=== PATIENT | female | born 1975 | race Caucasian/White ===

== ENCOUNTER → 2017-07-25 | Outpatient (CLI) | DX: Z34.83 Encounter for supervision of other normal pregnancy, third trimester (principal) | CPT/HCPCS: 36415; 80307; 82951; 85014; 85018; 86703; 87340; G0481 ==

== ENCOUNTER → 2017-07-30 | Outpatient (CLI) | payer OTHER ==
[~2017-07-30] MED LIST: CELE10TA PO; MULT-120 PO
== END ==
LOC: CLAB 10:19
PROVIDERS: ATTEND Obstetrics & Gynecology
DX: Z34.83 Encounter for supervision of other normal pregnancy, third trimester (principal)
CPT/HCPCS: 36415; 82951; 82952

== ENCOUNTER 2017-09-28 07:45 | Inpatient (IN) ==
[2017-09-28] MEDS ORDERED: fentaNYL 2MCG-Bupiv 0.125% Epi 150 ML EPIDURAL ONE (08:26)
[2017-09-28] MEDS ORDERED: Oxytocin 30 Units/500ml Premix 30 UNITS/500 ML BAG IV.SIG PRN (08:29)
[2017-09-28] MEDS ORDERED: Oxytocin 30 Units/500ml Premix 30 UNITS/500 ML BAG IV.SIG ONE (08:32)
[2017-09-28] MEDS ORDERED: Naloxone Inj 0.4 MG/ML Vial IV.PUSH PRN ×2 (08:32→10:51)
[2017-09-28] MEDS ORDERED: fentaNYL Citrate Inj 100 MCG/2 ML Ampul IV.PUSH PRN ×2 (08:32)
[2017-09-28] MEDS ORDERED: Sodium Chlor 0.9% Inj 500 ML IV.SIG PRN (08:32)
[2017-09-28] MEDS ORDERED: Sod Chloride 0.9% Inj 1,000 ML IV.CONT PRN (08:32)
[2017-09-28 08:39] LABS: Baso # (Auto) 0.1 th/mm3 (0.0-0.2); Baso % (Auto) 0.8 % (0.0-2.0); Eos # (Auto) 0.1 th/mm3 (0.0-0.4); Eos % (Auto) 1.1 % (0.0-4.0); Lymph # (Auto) 2.6 th/mm3 (1.0-4.8); Lymph % (Auto) 19.2 % (9.0-44.0); Mean Corpuscular HGB Conc 34.3 % (32.0-36.0); Mean Corpuscular Hemoglobin 29.5 pg (27.0-34.0); Mean Corpuscular Volume 86.1 fL (80.0-100.0); Mean Platelet Volume 8.5 fL (7.0-11.0); Mono # (Auto) 0.7 th/mm3 (0.0-0.9); Mono % (Auto) 5.5 % (0.0-8.0); Neut # (Auto) 9.9 th/mm3 (1.8-7.7); Neut % (Auto) 73.4 % (16.0-70.0); Platelet Count 237 th/mm3 (150-450); Red Blood Count 4.41 mil/mm3 (4.00-5.30); Red Cell Distribution Width 13.3 % (11.6-17.2); White Blood Count 13.5 th/mm3 (4.0-11.0)
[2017-09-28] MEDS ORDERED: Citric Acid/Sodium Citrate Liq 30 ML UDC PO SCH (08:45)
[2017-09-28] MEDS ORDERED: Bupivacaine/Epinephrine PF Inj 0.25% 10 ML Vial ONE (09:11)
[2017-09-28] MEDS ORDERED: fentaNYL 2MCG-Bupiv 0.125% Epi 150 ML EPIDURAL PRN (09:27)
[2017-09-28] MEDS ORDERED: fentaNYL Citrate Inj 100 MCG/2 ML Ampul EPIDURAL ONE (09:27)
--- NOTE | 2017-09-28 10:50 | P.HPOB ---
History of Present Illness Primary Care Physician: No Primary Care Physician Chief Complaint: Active labor at 38 and 4/7 weeks History of Present Illness: 41 yo mf at 38 4/7 weeks returned to L & D for second time in two hours at 4/100 and in significant distress. and maternal eval reassuring and consensus finally that labor ongoing. PNC with HOGA. No risk factors other than maternal age. NIPT reassuring. surveillance in third trimester reassuring No HTN, diabetes or PTL GBS neg. serology negative. Previous section x 1 and x 1. Desires TOLAC Weeks Gestation:: 38 Para: 2 : 3 - Inpatient Certification I certify that the inpatient services were ordered in accordance with Medicare regulations governing the order. This includes certification that hospital inpatient services are reasonable and necessary and in the case of services not specified as inpatient-only under 42 CFR 419.22(n), that they are appropriately provided as inpatient services in accordance to with the 2-midnight benchmark under 43 CFR 412.3(e) Estimated Total Length of Stay (Days): 2 Plans for Post Hospital Care: Home [facility] - History History Provided By: Patient - Surgical History Surgical History: Surgical History (Last Updated 09/28/17 @ 01:37 by Pavan Heath MD) H/O dilation and curettage History of History of laparoscopy - Tobacco History Second Hand Smoke Exposure: No Tobacco Use In Past 30 Days: No Smoking Status: Never smoker - Alcohol History How Often Do You Have a Drink Containing Alcohol: Never - Substance Use History Substance History: No History of Abuse - Travel History History of Recent Travel: No Recent Travel in the [place] Within the Last 8 Weeks: No Recent Travel Out of the Country Within the Last 8 Weeks: No Medications and Allergies Active Medications: Active Medications Citric Acid/Sodium Citrate (Sodium Citrate/Citric Acid Liq) 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 [facility] Stop: 10/02/17 08:44 Ephedrine Sulfate (Ephedrine/Ns Syringe) 10 mg IV.PUSH UNSCH PRN PRN Reason: SEE LABEL COMMENTS Stop: 09/29/17 09:27 Fentanyl Citrate (Fentanyl Inj) 50 mcg IV.PUSH Q1H PRN PRN Reason: Pain Scale 3 - 5 Fentanyl Citrate (Fentanyl Inj) 100 mcg IV.PUSH Q1H PRN PRN Reason: PAIN SCALE 6 TO 10 Oxytocin (Pitocin 30 Units/Ns 500 Ml Premix) 30 units in 500 mls @ 1 mls/hr IV.SIG TITRATE PRN; Protocol PRN Reason: For induction of labor Lactated Ringer's (Lr 1000 Ml Inj) 1,000 mls @ 125 mls/hr IV.CONT .Q8H MARY Lactated Ringer's (Lr 1000 Ml Inj) 1,000 mls @ 3,000 mls/hr IV.SIG UNSCH PRN PRN Reason: compromise or epidural Sodium Chloride (Ns Inj) 500 mls @ 1,000 mls/hr IV.SIG UNSCH PRN PRN Reason: SEE LABEL COMMENTS Sodium Chloride (Ns Inj) 1,000 mls @ 100 mls/hr IV.CONT .Q10H PRN PRN Reason: SEE LABEL COMMENTS Fentanyl/Bupivacaine/Sodium Chlor (Fentanyl 2 Mcg-Bupiv 0.125% Epi) 150 mls @ 12 mls/hr EPIDURAL PRN PRN PRN Reason: for Labor Pain Lidocaine HCl (Xylocaine 1% Inj) 0.1 ml I-DERMAL PRN PRN PRN Reason: For IV start Stop: 10/01/17 08:31 Lidocaine HCl (Xylocaine 1% Inj) 10 ml INFILTRATN PRN PRN PRN Reason: For episiotomy repair Stop: 09/30/17 08:31 Mineral Oil (Muri-Lube Oil) 10 ml TOPICAL PRN PRN PRN Reason: PRN perineal massage Miscellaneous Information (Misc Information) 1 each OTHER UNSCH PRN PRN Reason: SEE LABEL COMMENTS Stop: 09/29/17 09:27 Miscellaneous Information (Misc Information) 1 each OTHER UNSCH PRN PRN Reason: SEE LABEL COMMENTS Stop: 09/29/17 09:27 Naloxone HCl (Narcan Inj) 0.1 mg IV.PUSH Q2M PRN PRN Reason: for opiate reversal Ondansetron HCl (Zofran Odt) 4 mg PO Q6H PRN PRN Reason: NAUSEA OR VOMITING Allergies Allergy/AdvReac Type Severity Reaction Status Date / Time Sulfa (Sulfonamide Allergy Severe swelling Verified 09/28/17 08:39 Antibiotics) Home Medications Medication Instructions Recorded Confirmed Type PNV cmb#95-ferrous fumarate-FA 1 tab PO DAILY 09/28/17 09/28/17 History [] polyethylene glycol 3350 [Miralax] 17 g PO DAILY 09/28/17 09/28/17 History Exam Vital signs: Vital Signs 09/28/17 08:18 09/28/17 08:19 09/28/17 08:59 Temperature 98.7 F Pulse Rate 82 92 H Respiratory Rate 17 20 Blood Pressure 132/85 140/81 09/28/17 09:00 09/28/17 09:05 09/28/17 09:25 Temperature Pulse Rate 82 107 H 95 H Respiratory Rate Blood Pressure 130/74 134/80 135/80 09/28/17 09:35 09/28/17 09:42 09/28/17 10:00 Temperature Pulse Rate 87 87 90 Respiratory Rate Blood Pressure 128/69 99/58 L 09/28/17 10:10 09/28/17 10:15 09/28/17 10:30 Temperature Pulse Rate 91 H 92 H 95 H Respiratory Rate Blood Pressure 130/72 121/84 - Constitutional severe distress Results - Labs CBC & Chem 7: 09/28/17 08:15 Labs: Laboratory Results - last 24 hr 09/28/17 09/28/17 08:15 08:15 WBC 13.5 H RBC 4.41 Hgb 13.0 Hct 38.0 MCV 86.1 MCH 29.5 MCHC 34.3 RDW 13.3 Plt Count 237 MPV 8.5 Neut % (Auto) 73.4 H Lymph % (Auto) 19.2 [place] % (Auto) 5.5 Eos % (Auto) 1.1 Baso % (Auto) 0.8 Neut # (Auto) 9.9 H Lymph # (Auto) 2.6 [place] # (Auto) 0.7 Eos # (Auto) 0.1 Baso # (Auto) 0.1 WBC Differential . Differential Comment Auto diff final Blood Type A Positive Blood Type Recheck Required Caprini VTE Risk Assessment Caprini VTE Risk Assessment: No/Low Risk (score <= 1) Caprini Risk Assessment Model: Point Value = 1 Point Value = 2 Point Value = 3 Point Value = 5 Age 41-60 Minor surgery BMI > 25 kg/m2 Swollen legs Varicose veins or History of unexplained or recurrent spontaneous Oral contraceptives or hormone replacement Sepsis (< 1 month) Serious lung disease, including pneumonia (< 1 month) Abnormal pulmonary function Acute myocardial infarction Congestive heart failure (< 1 month) History of inflammatory bowel disease Medical patient at bed rest Age 61-74 Arthroscopic surgery Major open surgery (> 45 min) Laparoscopic surgery (> 45 min) Malignancy Confined to bed (> 72 hours) Immobilizing plaster cast Central venous access Age >= 75 History of VTE Family history of VTE Factor V Leiden Prothrombin [id number] Lupus anticoagulant Anticardiolipin antibodies Elevated serum homocysteine Heparin-induced thrombocytopenia Other congenital or acquired thrombophilia Stroke (< 1 month) Elective arthroplasty Hip, pelvis, or leg fracture Acute spinal cord injury (< 1 month) Prophylaxis Regimen: Total Risk Factor Score Risk Level Prophylaxis Regimen 0-1 Low Early ambulation 2 Moderate Order ONE of the following: *Sequential Compression Device (SCD) *Heparin 5000 units SQ BID 3-4 Higher Order ONE of the following medications: *Heparin 5000 units SQ TID *Enoxaparin/Lovenox 40 mg SQ daily (WT < 150 kg, CrCl > 30 mL/min) *Enoxaparin/Lovenox 30 mg SQ daily (WT < 150 kg, CrCl > 10-29 mL/min) *Enoxaparin/Lovenox 30 mg SQ BID (WT < 150 kg, CrCl > 30 mL/min) AND/OR *Sequential Compression Device (SCD) 5 or more Highest Order ONE of the following medications: *Heparin 5000 units SQ TID (Preferred with Epidurals) *Enoxaparin/Lovenox 40 mg SQ daily (WT < 150 kg, CrCl > 30 mL/min) *Enoxaparin/Lovenox 30 mg SQ daily (WT < 150 kg, CrCl > 10-29 mL/min) *Enoxaparin/Lovenox 30 mg SQ BID (WT < 150 kg, CrCl > 30 mL/min) AND *Sequential Compression Device (SCD) Assessment and Plan - Diagnosis (1) 38 weeks gestation of Code(s): Z3A.38 - 38 weeks gestation of Status: Acute (2) Active labor Status: Acute (3) Previous section Code(s): Z98.891 - History of uterine scar from previous surgery Status: Acute - Plan anticipate augment if needed arom when epidural in place known male
[2017-09-28] MEDS ORDERED: Bisacodyl 10 MG Supp RECTAL PRN (10:51)
[2017-09-28] MEDS ORDERED: Benzocaine 20% Top Spray 60 ML Can TOPICAL PRN (10:51)
--- NOTE | 2017-09-28 10:57 | P.OBDELI ---
Weeks Gestation: 38 Patient Started Active Labor: Yes Active Labor Start Date: 09/28/17 Active Labor Start Time: 03:00 Medical Induction of Labor: No Artificial Rupture of Membrane: No Anesthesia: Epidural Episiotomy: none Vaginal Delivery: Normal Presentation: Occiput anterior Nuchal Cord: None Delayed Cord Clamping (45 sec): Yes Placenta: Spontaneous delivery Laceration: None Estimated blood loss (mL): 200 : Male (Hitesh over intact perineum Placenta intact wtih 3VC 9 and 9 apgars weight pending)
[2017-09-28] MEDS ORDERED: Oxytocin 30 Units/500ml Premix 30 UNITS/500 ML BAG IV.CONT SCH (11:00)
[2017-09-28 11:36] LABS: Bacteria,Urine Rare /hpf; Bilirubin,Urine Negative (Negative); Clarity,Urine Hazy (Clear); Color,Urine Yellow (Yellw/Straw); Glucose,Urine (UA) Negative (Negative); Leukocyte Esterase,Urine Trace (Negative); Mucus,Urine Few /lpf (Occasional); Nitrite,Urine Negative (Negative); Specific Gravity,Urine 1.018 (1.002-1.035); Squamous Epithelial Cell,Urine 6 /hpf (0-5)
[2017-09-28 11:40] LABS: Amphetamine Screen,Urine Neg (Neg); Barbiturate Screen,Urine Neg (Neg); Cannabinoid Screen,Urine Neg (Neg); Cocaine Screen,Urine Neg (Neg); Opiate Screen,Urine Neg (Neg)
[2017-09-28] MEDS ORDERED: Witch Hazel 50%/Glyderin 12.5% 40 Pad Jar RECTAL PRN (13:00)
[2017-09-28] MEDS: Ibuprofen 400 MG Tablet PO PRN (15:00)
[2017-09-28] MEDS ORDERED: Diphtheria/Tetanus/Pertussis Vaccine Inj 0.5 ML Syringe IM ONE (16:00)
[2017-09-28] MEDS ORDERED: Measles/Mumps/Rubella Vaccine Inj 0.5 ML Vial SQ ONE (16:00)
[2017-09-28] MEDS: Pantoprazole Sodium 20 MG DR Tablet PO SCH (17:03)
[2017-09-28] MEDS: Acetaminophen 325 MG Tablet PO PRN (19:13)
[2017-09-28] MEDS ORDERED: Zolpidem Tartrate 5 MG Tablet PO PRN (21:00)
[2017-09-28] MEDS: Senna/Docusate Sodium 8.6/50 MG Tablet PO SCH (22:53)
[2017-09-29] MEDS: Ibuprofen 400 MG Tablet PO PRN ×2 (00:17→09:30)
[2017-09-29] MEDS: Acetaminophen 325 MG Tablet PO PRN (00:17)
--- NOTE | 2017-09-29 08:11 | P.PNOB ---
Subjective Post day: 1 Interval history: doing well with nursing no pain issues bleeding appropriate Objective Vital Signs/I&O: Vital Signs 09/28/17 08:18 09/28/17 08:19 09/28/17 08:59 Temperature 98.7 F Pulse Rate 82 92 H Respiratory Rate 17 20 Blood Pressure 132/85 140/81 09/28/17 09:00 09/28/17 09:05 09/28/17 09:25 Temperature Pulse Rate 82 107 H 95 H Respiratory Rate Blood Pressure 130/74 134/80 135/80 09/28/17 09:35 09/28/17 09:42 09/28/17 10:00 Temperature Pulse Rate 87 87 90 Respiratory Rate Blood Pressure 128/69 99/58 L 09/28/17 10:10 09/28/17 10:15 09/28/17 10:30 Temperature Pulse Rate 91 H 92 H 95 H Respiratory Rate Blood Pressure 130/72 121/84 09/28/17 10:44 09/28/17 10:46 09/28/17 10:51 Temperature Pulse Rate 151 H 84 Respiratory Rate 18 Blood Pressure 156/101 H 09/28/17 10:53 09/28/17 11:01 09/28/17 11:19 Temperature Pulse Rate 86 Respiratory Rate 18 17 Blood Pressure 124/76 09/28/17 11:31 09/28/17 11:44 09/28/17 12:16 Temperature Pulse Rate 143 H 78 Respiratory Rate 18 Blood Pressure 124/92 H 127/76 09/28/17 12:29 09/28/17 13:00 09/28/17 13:45 Temperature 97.5 F L Pulse Rate 85 80 Respiratory Rate 17 20 Blood Pressure 123/69 119/71 09/28/17 19:31 09/28/17 20:10 09/29/17 01:55 Temperature 98.1 F Pulse Rate 74 Respiratory Rate 16 18 18 Blood Pressure 102/69 Result Diagrams: 09/28/17 08:15 Objective Remarks: GENERAL: Well-nourished, well-developed patient. CARDIOVASCULAR: Regular rate and rhythm without murmurs, gallops, or rubs. RESPIRATORY: Breath sounds equal bilaterally. No accessory muscle use. ABDOMEN/GI: Abdomen soft, non-tender. Fundus: Firm, non-tender at umbilicus. GENITOURINARY: Light to moderate bleeding. EXTREMITIES: No cyanosis or edema, non-tender, without signs of DVT. 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 [facility] Stop: 10/02/17 08:44 Ephedrine Sulfate (Ephedrine/Ns Syringe) 10 mg IV.PUSH UNSCH PRN PRN Reason: SEE LABEL COMMENTS Stop: 09/29/17 09:27 Fentanyl Citrate (Fentanyl Inj) 50 mcg IV.PUSH Q1H PRN PRN Reason: Pain Scale 3 - 5 Fentanyl Citrate (Fentanyl Inj) 100 mcg IV.PUSH Q1H PRN PRN Reason: PAIN SCALE 6 TO 10 Oxytocin (Pitocin 30 Units/Ns 500 Ml Premix) 30 units in 500 mls @ 1 mls/hr IV.SIG TITRATE PRN; Protocol PRN Reason: For induction of labor Lactated Ringer's (Lr 1000 Ml Inj) 1,000 mls @ 125 mls/hr IV.CONT .Q8H [facility] Lactated Ringer's (Lr 1000 Ml Inj) 1,000 mls @ 3,000 mls/hr IV.SIG UNSCH PRN PRN Reason: compromise or epidural Sodium Chloride (Ns Inj) 500 mls @ 1,000 mls/hr IV.SIG UNSCH PRN PRN Reason: SEE LABEL COMMENTS Sodium Chloride (Ns Inj) 1,000 mls @ 100 mls/hr IV.CONT .Q10H PRN PRN Reason: SEE LABEL COMMENTS Fentanyl/Bupivacaine/Sodium Chlor (Fentanyl 2 Mcg-Bupiv 0.125% Epi) 150 mls @ 12 mls/hr EPIDURAL PRN PRN PRN Reason: for Labor Pain Lactulose (Lactulose Liq) 30 ml PO DAILY PRN PRN Reason: SEVERE CONSITIPATION Lidocaine HCl (Xylocaine 1% Inj) 0.1 ml I-DERMAL PRN PRN PRN Reason: For IV start Stop: 10/01/17 08:31 Lidocaine HCl (Xylocaine 1% Inj) 10 ml INFILTRATN PRN PRN PRN Reason: For episiotomy repair Stop: 09/30/17 08:31 Mineral Oil (Muri-Lube Oil) 10 ml TOPICAL PRN PRN PRN Reason: PRN perineal massage Miscellaneous Information (Misc Information) 1 each OTHER UNSCH PRN PRN Reason: SEE LABEL COMMENTS Stop: 09/29/17 09:27 Miscellaneous Information (Misc Information) 1 each OTHER UNSCH PRN PRN Reason: SEE LABEL COMMENTS Stop: 09/29/17 09:27 Naloxone HCl (Narcan Inj) 0.1 mg IV.PUSH Q2M PRN PRN Reason: for opiate reversal Naloxone HCl (Narcan Inj) 0.1 mg IV.PUSH Q2M PRN PRN Reason: for opiate reversal Ondansetron HCl (Zofran Odt) 4 mg PO Q6H PRN PRN Reason: NAUSEA OR VOMITING Ondansetron HCl (Zofran Odt) 4 mg PO Q6H PRN PRN Reason: NAUSEA OR VOMITING Oxycodone/Acetaminophen (Percocet 5/325 Mg) 1 tab PO Q4H PRN PRN Reason: PAIN SCALE 6 TO 10 Pantoprazole Sodium (Protonix) 20 mg PO DAILY [facility] Last Admin: 09/28/17 17:03 Dose: 20 mg Senna/Docusate Sodium (Nae-Colace) 1 tab PO BID [facility] Last Admin: 09/28/17 22:53 Dose: Not Given Sennosides (Senokot) 17.2 mg PO Q12H PRN PRN Reason: Moderate Constipation Sodium Chloride (Ns Flush) 2 ml IV.FLUSH BID [facility] Sodium Chloride (Ns Flush) 2 ml IV.FLUSH PRN PRN PRN Reason: FLUSH AFTER USING IV ACCESS Witch Yenny/Glycerin (Tucks Pads) 1 applicatio RECTAL QID PRN PRN Reason: HEMORRHOIDS Zolpidem Tartrate (Ambien) 5 mg PO HS PRN PRN Reason: SLEEP Assessment and Plan - Diagnosis (1) 38 weeks gestation of Code(s): Z3A.38 - 38 weeks gestation of Status: Acute (2) Active labor Status: Acute (3) Previous section Code(s): Z98.891 - History of uterine scar from previous surgery Status: Acute - Plan anticipate augment if needed arom when epidural in place known male PPD 1 doing well baby for circ counseled home today
[2017-09-29] MEDS: Senna/Docusate Sodium 8.6/50 MG Tablet PO SCH (09:30)
[2017-09-29] MEDS: Pantoprazole Sodium 20 MG DR Tablet PO SCH (09:31)
== END 2017-09-29 16:34 | disposition home or self-care (01) ==
LOC: EDSTATUS 07:50 → H2E 07:51 → H1EA 13:20
PROVIDERS: ADMIT Obstetrics & Gynecology; ATTEND Obstetrics & Gynecology

== ENCOUNTER 2017-10-01 21:50 | Observation (INO) ==
[2017-10-01 22:44] LABS: Hematocrit 34.7 % (35.0-46.0); Hemoglobin 11.9 gm/dL (11.6-15.3); Mean Corpuscular HGB Conc 34.3 % (32.0-36.0); Mean Corpuscular Hemoglobin 29.5 pg (27.0-34.0); Mean Corpuscular Volume 86.1 fL (80.0-100.0); Mean Platelet Volume 8.2 fL (7.0-11.0); Platelet Count 219 th/mm3 (150-450); Red Blood Count 4.03 mil/mm3 (4.00-5.30); Red Cell Distribution Width 13.2 % (11.6-17.2); White Blood Count 10.3 th/mm3 (4.0-11.0)
[2017-10-01 23:07] LABS: Albumin 2.4 g/dL (3.4-5.0); Anion Gap 10 meq/L (5-15); Aspartate Aminotransferase 70 U/L (15-37); Blood Urea Nitrogen 12 mg/dL (7-18); Calcium 9.2 mg/dL (8.5-10.1); Carbon Dioxide 23.2 meq/L (21.0-32.0); Chloride 108 meq/L (98-107); Glomerular Filtration Rate Greater Than 89 mL/min (>89); Glucose,Random 103 mg/dL (74-106); Potassium 3.7 meq/L (3.5-5.1); Sodium 141 meq/L (136-145); Uric Acid 4.8 mg/dl (2.6-6.0)
[2017-10-01 23:08] LABS: Alanine Aminotransferase 106 U/L (10-53)
[2017-10-01 23:10] LABS: Alkaline Phosphatase 118 U/L (45-117); Total Protein 6.3 g/dL (6.4-8.2)
--- NOTE | 2017-10-01 23:35 | P.HPOB ---
Patient Name: Harlan Morrow Date of : 71 Patient Status: Emergency Emergency Provider: Srini Hanson Date: 10/01/17 22:37 Initialization Date: 10/01/17 22:37 History of Present Illness Primary Care Physician: No Primary Care Physician Dr. Welch Chief Complaint: Headache, hypertension, abdominal pain and swelling History of Present Illness: is 3 days status post delivery with Dr. Welch, she has done well initially but today started having frontal headaches I feel like her head was full and pressured almost like a sinus congestion and pressure, also noted increasing swelling in her extremities, face and she noted her blood pressure was 140/90, she states that [place] [id number]. During her period she had one blood pressure was elevated 150/100 all for other pressures within normal limits, and her laboratory was all within normal limits on her admission 3 days ago. Here on OB ED we noted a blood pressure 140/96 and 160/90. She also claims that she is having continued abdominal pain that seems to be rising up in the upper abdomen and the back from the pelvis. She is to continue to have moderate lochia. She is breast- feeding her baby and she is getting up and down a lot at home over the last 48 hours Para: 3 : 3 Review of Systems Constitutional: Reports body ache(s), Reports fatigue, Reports weakness Eyes: Denies blind spots, Denies blurry vision, Denies bulging eyes, Denies change in vision, Denies double vision, Denies discharge, Denies dry eyes, Denies floaters, Denies irritation, Denies itchy eyes, Denies loss of vision, Denies pain, Denies requires corrective lenses, Denies sensitivity to light, Denies other Cardiovascular: Denies bluish discoloration of hand/feet, Denies chest pain, Denies chest pain at rest, Denies chest pain with activity, Denies excessive sweating, Denies fainting, Denies fast heart rate, Denies foot swelling, Denies generalized swelling, Denies irregular heart rhythm, Denies leg pain with activity, Denies leg sores, Denies leg swelling, Denies lightheadedness, Denies radiating jaw, neck or arm pain, Denies rapid, pounding, or irregular heartbeat , Denies shortness of breath, Denies shortness of breath with activity, Denies shortness of breath when lying down, Denies shortness of breath causing sudden awakening, Denies slow heart rate, Denies other Respiratory: Denies change in phlegm color, Denies chest congestion, Denies cough, Denies coughing up blood, Denies excessive phlegm production, Denies pain on inspiration, Denies pain with cough, Denies shortness of breath, Denies shortness of breath with activity, Denies snoring, Denies stridor, Denies wheezing, Denies other Gastrointestinal: Reports abdominal pain Genitourinary: Denies abnormal periods, Denies abnormal vaginal bleeding, Denies absent period, Denies bleeding between periods, Denies blood in urine, Denies difficulty starting urination, Denies difficulty urinating, Denies dribbling after urination, Denies frequent nighttime urination, Denies genital itching, Denies genital lesions, Denies heavy periods, Denies hot flashes, Denies light periods, Denies nipple discharge, Denies painful intercourse, Denies painful periods, Denies painful urination, Denies pelvic pain, Denies prolapse symptoms, Denies sexual problems, Denies side pain, Denies urinary incontinence, Denies urinary urgency, Denies vaginal discharge, Denies vaginal dryness, Denies vaginal odor, Denies vaginal itching, Denies other Musculoskeletal: Denies abnormal walking, Denies back pain, Denies body aches, Denies decreased muscle mass, Denies deformity, Denies joint pain, Denies joint swelling, Denies limited joint movement, Denies loss of height, Denies muscle cramps, Denies muscle weakness, Denies neck pain, Denies numbness, Denies radiating pain into limb, Denies stiffness, Denies tingling, Denies other Neurologic: Reports headache(s) PMFSH - History History Provided By: Patient - Surgical History Surgical History: Surgical History (Last Updated 09/28/17 @ 10:47 by Lydia Welch MD) H/O dilation and curettage History of History of laparoscopy - Tobacco History Second Hand Smoke Exposure: No Smoking Status: Never smoker - Alcohol History How Often Do You Have a Drink Containing Alcohol: Never - Substance Use History Substance History: No History of Abuse - Travel History History of Recent Travel: No - Immunization History Tetanus Immunization: Unsure Hx Influenza Vaccine This Season: Yes Medications and Allergies Active Medications: Active Medications Non-Formulary Medication (Pnv Cmb#95-Ferrous Fumarate-Fa []) 1 tab PO DAILY MARY Polyethylene Glycol (Miralax) 17 gm PO DAILY MARY Allergies Allergy/AdvReac Type Severity Reaction Status Date / Time Sulfa (Sulfonamide Allergy Severe swelling Verified 09/28/17 08:39 Antibiotics) Home Medications Medication Instructions Recorded Confirmed Type PNV cmb#95-ferrous fumarate-FA 1 tab PO DAILY 09/28/17 09/28/17 History [] polyethylene glycol 3350 [Miralax] 17 g PO DAILY 09/28/17 09/28/17 History Exam Vital signs: Vital Signs 10/01/17 22:13 10/01/17 22:14 10/01/17 22:15 Temperature 98.0 F Pulse Rate 59 L 56 L Respiratory Rate 16 Blood Pressure 144/92 H 160/90 H - Constitutional no acute distress - Routine HEENT Exam Head: Present: normocephalic, atraumatic, facial swelling Eye: Present: PERRL - Routine Respiratory Exam Present: CTA bilaterally - Routine Cardiovascular Exam Present: RRR - Routine Abdominal Exam Present: soft Comments: Uterus is 3 cm below the umbilicus and firm - Routine Skin Exam Present: intact - Routine Neurological Exam Present: alert, oriented X3, CN II-XII intact Results - Labs CBC & Chem 7: 10/01/17 22:30 10/01/17 22:30 Assessment and Plan - Diagnosis (1) Hypertension, condition or complication Code(s): O16.5 - Unspecified maternal hypertension, complicating the puerperium Status: Acute Discharge Plan - Physicians Team ED Provider: Srini Hanson Primary Care Provider: Primary Care Gissell Hopkins - Rxs /Orders / Referrals /Forms Prescriptions: No Action PNV cmb#95-ferrous fumarate-FA [] 28 mg iron- 800 mcg Tablet 1 tab PO DAILY polyethylene glycol 3350 [Miralax] 17 gram Powder In Packet 17 g PO DAILY - Discharge Instructions Print Language: Citizen Of [place]
[2017-10-01] MEDS ORDERED: Docusate Sodium 100 MG Capsule PO PRN (23:36)
[2017-10-01] MEDS ORDERED: Zolpidem Tartrate 5 MG Tablet PO PRN (23:36)
[2017-10-01] MEDS ORDERED: NIFEdipine 10 MG Capsule PO PRN (23:36)
[2017-10-01] MEDS ORDERED: Acetaminophen 325 MG Tablet PO PRN (23:36)
[2017-10-01] MEDS: Labetalol 100 MG Tablet PO SCH (23:51)
[2017-10-02 05:56] LABS: Hematocrit 34.8 % (35.0-46.0); Hemoglobin 11.9 gm/dL (11.6-15.3); Mean Corpuscular HGB Conc 34.3 % (32.0-36.0); Mean Corpuscular Hemoglobin 29.9 pg (27.0-34.0); Mean Corpuscular Volume 87.2 fL (80.0-100.0); Mean Platelet Volume 8.5 fL (7.0-11.0); Platelet Count 216 th/mm3 (150-450); Red Blood Count 3.99 mil/mm3 (4.00-5.30); Red Cell Distribution Width 13.3 % (11.6-17.2); White Blood Count 9.9 th/mm3 (4.0-11.0)
[2017-10-02 06:23] LABS: Alanine Aminotransferase 122 U/L (10-53); Albumin 2.5 g/dL (3.4-5.0); Anion Gap 7 meq/L (5-15); Aspartate Aminotransferase 83 U/L (15-37); Blood Urea Nitrogen 13 mg/dL (7-18); Calcium 8.5 mg/dL (8.5-10.1); Chloride 109 meq/L (98-107); Glomerular Filtration Rate Greater Than 89 mL/min (>89); Glucose,Random 74 mg/dL (74-106); Potassium 3.6 meq/L (3.5-5.1); Sodium 141 meq/L (136-145)
[2017-10-02 06:25] LABS: Alkaline Phosphatase 114 U/L (45-117)
--- NOTE | 2017-10-02 07:52 | P.PNOB ---
Subjective Post day: 4 Objective Vital Signs/I&O: Vital Signs 10/01/17 22:13 10/01/17 22:14 10/01/17 22:15 Temperature 98.0 F Pulse Rate 59 L 56 L Respiratory Rate 16 Blood Pressure 144/92 H 160/90 H 10/01/17 22:45 10/01/17 23:30 10/02/17 00:07 Temperature Pulse Rate 63 62 55 L Respiratory Rate 15 Blood Pressure 149/80 H 145/88 H 149/84 H 10/02/17 01:01 10/02/17 02:00 10/02/17 02:30 Temperature Pulse Rate 56 L 59 L Respiratory Rate 17 Blood Pressure 127/84 106/66 10/02/17 03:30 Temperature Pulse Rate 47 L Respiratory Rate 17 Blood Pressure 123/70 Result Diagrams: 10/02/17 04:53 10/02/17 04:53 Objective Remarks: GENERAL: Well-nourished, well-developed patient. CARDIOVASCULAR: Regular rate and rhythm without murmurs, gallops, or rubs. RESPIRATORY: Breath sounds equal bilaterally. No accessory muscle use. ABDOMEN/GI: Abdomen soft, non-tender. Fundus: Firm, non-tender at umbilicus. GENITOURINARY: Light to moderate bleeding. EXTREMITIES: No cyanosis 4+ pitting edema breast engorgement Medications and IVs: Active Medications Acetaminophen (Tylenol) 650 mg PO Q4H PRN PRN Reason: PAIN SCALE 1 TO 2 Calcium Gluconate (Calcium Gluconate Inj) 1 gm IV.PUSH PRN PRN PRN Reason: Magnesium toxicity Docusate Sodium (Colace) 100 mg PO BID PRN PRN Reason: CONSTIPATION Labetalol HCl (Trandate) 100 mg PO BID [facility] Last Admin: 10/01/17 23:51 Dose: 100 mg Nifedipine (Procardia) 10 mg PO NOW PRN PRN Reason: SEE LABEL COMMENTS Nifedipine (Procardia) 20 mg PO NOW PRN PRN Reason: SEE LABEL COMMENTS Nifedipine (Procardia) 20 mg PO NOW PRN PRN Reason: SEE LABEL COMMENTS Non-Formulary Medication (Pnv Cmb#95-Ferrous Fumarate-Fa []) 1 tab PO DAILY [facility] Ondansetron HCl (Zofran Odt) 4 mg PO Q6H PRN PRN Reason: NAUSEA OR VOMITING Polyethylene Glycol (Miralax) 17 gm PO DAILY MARY Vit/Calcium/Iron/Folic Ac (Stuartnatal Plus 3) 1 tab PO DAILY MARY Sodium Chloride (Ns Flush) 2 ml IV.FLUSH BID MARY Sodium Chloride (Ns Flush) 2 ml IV.FLUSH PRN PRN PRN Reason: FLUSH AFTER USING IV ACCESS Zolpidem Tartrate (Ambien) 5 mg PO HS PRN PRN Reason: INSOMNIA Assessment and Plan - Plan LFTS trending up slightly all other parameters stable or improved. will do ultrasound of GB for completeness re evaluate after imaging
[2017-10-02] MEDS ORDERED: Metoclopramide 10 MG Tablet PO SCH (08:00)
[2017-10-02] MEDS ORDERED: Polyethylene Glycol 3350 17 GM Packet PO SCH (09:00)
[2017-10-02] MEDS ORDERED: Non-Formulary Drug (Pnv Cmb#95-Ferrous Fumarate-Fa [Prenatal] 1 TAB) PO SCH (09:00)
[2017-10-02] MEDS ORDERED: Prenatal Vit/Ca/Iron/Folic Acid Tablet PO SCH (09:00)
--- NOTE | 2017-10-02 09:24 | US ---
EXAM DATE: 10/02/2017 9:01 AM EDT AGE/SEX: 41 years / Female INDICATIONS: Elevated LFT's with right upper quadrant pain. CLINICAL DATA: This is the patient's initial encounter. Patient reports that signs and/or symptoms h ave been present for 3 days and indicates a pain score of 5/10. MEDICAL/SURGICAL HISTORY: . Right upper quadrant pain. section. D&C. COMPARISON: No prior exams available for comparison. MEASUREMENTS: Liver:__ 17.8 cm. Common Bile Duct:__ 5mm. FINDINGS: Liver: Normal echotexture without focal lesion or ductal dilatation. Portal Vein: Hepatopedal flow seen in portal vein. Common Duct: No intraluminal mass or stone visualized. Gallbladder: The gallbladder is normal in size, shape and wall thickness with no evidence of choleli thiasis. There is apparent trace fluid adjacent to the gallbladder. Pancreas: The visualized portions are within normal limits Right Kidney: Normal echotexture and cortical thickness. No mass or hydronephrosis. Other: None. 1. The gallbladder is unremarkable in appearance with no evidence of cholelithiasis. 2. Trace fluid in the abdomen near the gallbladder. 3. The liver appears mildly prominent with no focal abnormality. Electronically signed by: Abdelrahman Rogel MD 10/02/2017 9:23 AM EDT
[2017-10-02] MEDS: Labetalol 100 MG Tablet PO SCH (09:26)
--- NOTE | 2017-10-02 10:15 | P.PNOB ---
Subjective Post day: 4 Interval history: No TAFOYA, N, V, blurred vision or RUQT lochia minimal BP still mildly up and pulse low need to document trending down LFTs change labetolol to procardia Objective Vital Signs/I&O: Vital Signs 10/01/17 22:13 10/01/17 22:14 10/01/17 22:15 Temperature 98.0 F Pulse Rate 59 L 56 L Respiratory Rate 16 Blood Pressure 144/92 H 160/90 H 10/01/17 22:45 10/01/17 23:30 10/02/17 00:07 Temperature Pulse Rate 63 62 55 L Respiratory Rate 15 Blood Pressure 149/80 H 145/88 H 149/84 H 10/02/17 01:01 10/02/17 02:00 10/02/17 02:30 Temperature Pulse Rate 56 L 59 L Respiratory Rate 17 Blood Pressure 127/84 106/66 10/02/17 03:30 10/02/17 08:04 10/02/17 08:40 Temperature 98.2 F Pulse Rate 47 L 53 L Respiratory Rate 17 17 Blood Pressure 123/70 145/85 H 10/02/17 09:15 Temperature Pulse Rate 52 L Respiratory Rate Blood Pressure Result Diagrams: 10/02/17 04:53 10/02/17 04:53 Objective Remarks: GENERAL: Well-nourished, well-developed patient. CARDIOVASCULAR: Regular rate and rhythm without murmurs, gallops, or rubs. RESPIRATORY: Breath sounds equal bilaterally. No accessory muscle use. ABDOMEN/GI: Abdomen soft, non-tender. Fundus: Firm, non-tender at umbilicus. GENITOURINARY: Light to moderate bleeding. EXTREMITIES: No cyanosis or edema, non-tender, without signs of DVT. Medications and IVs: Active Medications Acetaminophen (Tylenol) 650 mg PO Q4H PRN PRN Reason: PAIN SCALE 1 TO 2 Calcium Gluconate (Calcium Gluconate Inj) 1 gm IV.PUSH PRN PRN PRN Reason: Magnesium toxicity Docusate Sodium (Colace) 100 mg PO BID PRN PRN Reason: CONSTIPATION Metoclopramide HCl (Reglan) 10 mg PO ACHS [facility] Last Admin: 10/02/17 09:15 Dose: 10 mg Nifedipine (Procardia) 10 mg PO NOW PRN PRN Reason: SEE LABEL COMMENTS Nifedipine (Procardia) 20 mg PO NOW PRN PRN Reason: SEE LABEL COMMENTS Nifedipine (Procardia) 20 mg PO NOW PRN PRN Reason: SEE LABEL COMMENTS Nifedipine (Procardia Xl) 30 mg PO DAILY [facility] Last Admin: 10/02/17 09:37 Dose: 30 mg Non-Formulary Medication (Pnv Cmb#95-Ferrous Fumarate-Fa []) 1 tab PO DAILY [facility] Last Admin: 10/02/17 09:17 Dose: Not Given Ondansetron HCl (Zofran Odt) 4 mg PO Q6H PRN PRN Reason: NAUSEA OR VOMITING Polyethylene Glycol (Miralax) 17 gm PO DAILY [facility] Last Admin: 10/02/17 09:17 Dose: 17 gm Vit/Calcium/Iron/Folic Ac (Stuartnatal Plus 3) 1 tab PO DAILY [facility] Last Admin: 10/02/17 09:15 Dose: 1 tab Sodium Chloride (Ns Flush) 2 ml IV.FLUSH BID [facility] Last Admin: 10/02/17 09:17 Dose: 2 ml Sodium Chloride (Ns Flush) 2 ml IV.FLUSH PRN PRN PRN Reason: FLUSH AFTER USING IV ACCESS Zolpidem Tartrate (Ambien) 5 mg PO HS PRN PRN Reason: INSOMNIA Assessment and Plan - Plan LFTS trending up slightly all other parameters stable or improved. will do ultrasound of GB for completeness re evaluate after imaging
[2017-10-02 12:21] LABS: Albumin 2.5 g/dL (3.4-5.0)
== END 2017-10-02 16:32 | disposition home or self-care (01) ==
LOC: HOBED 21:50 → H2E 21:50
PROVIDERS: ADMIT Obstetrics & Gynecology; ATTEND Obstetrics & Gynecology